=== PATIENT | female | born 2000 | race Two or more races ===

== ENCOUNTER 2024-07-19 23:10 | Emergency (ER) | payer OTHER ==
[~2024-07-19] VITALS: Ht 157.5 cm; Wt 80.7 kg
[2024-07-20] MEDS ORDERED: FAMOTIDINE/PF 20 MG/2 ML VIAL IV PUSH STA ×2 (00:28→05:45)
[2024-07-20] MEDS ORDERED: PROMETHAZINE HCL 50 MG/ML AMPUL IM STA (00:28)
[2024-07-20] MEDS ORDERED: PROMETHAZINE HCL 50 MG/ML AMPUL IM ONE (00:31)
[2024-07-20] MEDS ORDERED: FAMOTIDINE/PF 20 MG/2 ML VIAL ONE ×2 (00:31→06:27)
[2024-07-20] MEDS ORDERED: LACTOBACILLUS ACIDOPHILUS 1 CAP CAP PO STA (00:37)
[2024-07-20] MEDS ORDERED: 0.9 % SODIUM CHLORIDE 1,000 ML IV ONE (00:45)
[2024-07-20 01:02] LABS: URINE APPEARANCE Clear; URINE BILIRRUBIN Negative (NEGATIVE); URINE BLOOD Negative; URINE COLOR Yellow; URINE GLUCOSE Negative (NEGATIVE); URINE LEUKOCYTE Trace; URINE NITRATE Negative; URINE PROTEIN Trace (NEGATIVE); URINE UROBILINOGEN 0.2 E.U./dl
[2024-07-20 01:05] LABS: BASO % 0.1 % (0.1-1.2); HEMATOCRIT 38.6 % (34.1-44.9); HEMOGLOBIN 13.7 g/dL (11.2-15.7); LYMPH # 0.46 (1.18-3.74); LYMPH % 3.9 % (19.3-53.1); MEAN CORPUSCULAR HEMOGLOBIN 29.8 pg (25.6-32.2); MONO % 4.2 % (4.7-12.5); NEUT # 10.92 (1.56-6.13); NEUT % 91.5 % (34.0-71.1); PLATELET COUNT 188 K/uL (163-369); RED CELL DISTRIBUTION WIDTH 12.3 % (11.6-14.4)
[2024-07-20 01:06] LABS: URINE BACTERIA 1221.3 uL (0.0-1933); URINE EPITHELIAL CELLS 6.1 uL (0.0-38.8); URINE RBC 5.3 uL (0.0-20.8); URINE WBC 9.6 uL (0.0-23.2)
[2024-07-20 01:10] LABS: URINE KETONE >=160 (NEGATIVE)
[2024-07-20 01:34] LABS: ALBUMIN 4.2 gm/dL (3.4-5.0); BILIRUBIN TOTAL 0.73 mg/dL (0.3-1.2); CALCIUM 9.1 mg/dL (8.5-10.1); CREATININE SERUM 0.78 mg/dL (0.55-1.02); GFR 92.35; GLOBULINA 4.1 G/DL (2.4-3.5); POTASSIUM 3.72 mEq/L (3.5-5.1); TOTAL PROTEIN 8.3 gm/dL (6.4-8.2)
[2024-07-20] MEDS ORDERED: SUCRALFATE 1 G TABLET PO STA (05:46)
[2024-07-20] MEDS ORDERED: ZOFRAN8 MG PO (07:59)
[2024-07-20] MEDS ORDERED: INTESTINEX680 M2 PO (07:59)
[2024-07-20] MEDS ORDERED: PEPCID40 MG PO (07:59)
== END 2024-07-20 08:46 ==
LOC: ER 07-20 00:10
PROVIDERS: General Practice
DX: R11.10 Vomiting, unspecified (principal); E86.0 Dehydration